=== PATIENT | female | born 2000 | race African-American/Black ===

== ENCOUNTER 2021-02-25 06:44 | Emergency (ER) | payer OTHER ==
--- OUTSIDE RECORDS SUMMARY | 2021-02-25 06:48 | XMS REPORT | Continuity of Care Document ---
:2000 Author Organization [facility] t Address [address] [place] [address] Care Team Providers Name Role Phone Nurse, [facility] Attending Clinician Unavailable Doctor Unassigned, Name Attending Clinician Unavailable Ashvin Antunez MD Attending Clinician Problems This patient has no known problems. Allergies, Adverse Reactions, Alerts This patient has no known allergies or adverse reactions. Medications This patient has no known medications. Procedures This patient has no known procedures. Encounters Start End Encounter Admission Attending Care Care Encounter Source Date/Time Date/Time Type Type Clinicians Facility Department ID 2020-11-10 2020-11-10 Nurse Nurse, [facility] [id number] 14:04:09 14:21:15 Visit Ellys Laura [id number] [place] [id number] [place] [phone] [address] 2020-11-10 2020-11-10 Orders Doctor HANNA [id number] 00:00:00 00:00:00 Only UnassignedNITA [id number] [place] [id number] [id number] 2020-10-13 2020-10-13 [place] KSALENA [id number] 00:00:00 00:00:00 Management Charu Sanchez [id number] [place] [id number] [address] 2020-10-07 2020-10-07 Office Adum, [facility] [id number] 14:57:02 16:05:41 Visit Charu Sanchez [id number] [place] [id number] [place] [phone] [facility] [address] [facility] Results This patient has no known results.
--- NOTE | 2021-02-25 07:57 | EDPHYS ---
Physician Documentation [facility] Name: Payton Crawford Age: 20 yrs Sex: Female : 2000 Arrival Date: 02/25/2021 Time: 06:48 Bed Waiting Private MD: ED Physician Andrew Chen HPI: 02/25 07:55 This 20 yrs old Black Female presents to ER via Ambulatory with complaints of Vomiting jmm - Over 24hrs. 07:55 The patient presents to the emergency department with nausea, vomiting. Onset: The jmm symptoms/episode began/occurred acutely, 1 day(s) ago. Possible causes: unknown. Is a 20-year-old female with no chronic medical conditions presents emerged part with complaints of nausea and vomiting beginning yesterday after eating breakfast. Patient denies diarrhea. Patient states she recently returned from [place] but had tested negative for coronavirus. Patient states she did have intermittent episodes of abdominal pain but now is pain-free. Patient does not have concerns for she did have a recent LMP.. Historical: - Allergies: 07:55 No Known Allergies; da3 - PMHx: 07:55 None; da3 - Immunization history:: Client reports having NOT received the Covid vaccine. ROS: 07:55 Constitutional: Negative for fever, chills, and weight loss, Cardiovascular: Negative jmm for chest pain, palpitations, and edema, Respiratory: Negative for shortness of breath, cough, wheezing, and pleuritic chest pain. 07:55 Abdomen/GI: Positive for vomiting. 07:55 All other systems are negative. Exam: 07:55 Constitutional: This is a well developed, well nourished patient who is awake, alert, jmm and in no acute distress. Head/Face: atraumatic. Eyes: EOMI, no conjunctival erythema appreciated ENT: Moist Mucus Membranes Neck: Trachea midline, Supple Chest/axilla: Normal chest wall appearance and motion. Cardiovascular: Regular rate and rhythm. No edema appreciated Respiratory: Normal respirations, no respiratory distress appreciated Abdomen/GI: Non distended, soft 07:55 Skin: General appearance color normal MS/ Extremity: Moves all extremities, no obvious deformities appreciated, no edema noted to the lower extremities Neuro: Awake and alert, normal gait Psych: Behavior is normal, Mood is normal, Patient is cooperative and pleasant 07:55 Abdomen/GI: Inspection: abdomen appears normal, Bowel sounds: normal, Palpation: abdomen is soft and non-tender, in all quadrants. Vital Signs: 07:54 BP 127 / 78; Pulse 67; Resp 18; Temp 98.1; Pulse Ox 100% on R/A; da3 MDM: 07:56 Data reviewed: vital signs, nurses notes. Counseling: I had a detailed discussion with [facility] the patient and/or guardian regarding: the historical points, exam findings, and any diagnostic results supporting the discharge/admit diagnosis, the need for outpatient follow up, to return to the emergency department if symptoms worsen or persist or if there are any questions or concerns that arise at home. ED course: Physical exam is not concerning for an acute intra-abdominal process. Patient was given early appendicitis return precautions. Patient understood and agrees to plan of care.. 07:57 Patient medically screened. [facility] Administered Medications: No medications were administered Disposition: 14:35 Co-signature as Attending Physician, Andrew Chen MD I agree with the assessment and rn plan of care. Attestation: The patient's history, exam findings, diagnostics, and a summary of any interventions or procedures was reviewed in detail with Gume CARREON. Disposition Summary: 02/25/21 07:57 Discharge Ordered Location: Home [facility] Condition: Stable [facility] Diagnosis - Vomiting [facility] Followup: [facility] - With: Private Physician - When: 2 - 3 days - Reason: Recheck today's complaints, Continuance of care, Re-evaluation by your physician Discharge Instructions: - Discharge Summary Sheet [facility] - Vomiting, Adult [facility] Forms: - Medication Reconciliation Form [facility] - Thank You Letter [facility] - Antibiotic Education [facility] - Prescription Opioid Use [facility] Prescriptions: - ondansetron 4 mg Oral tablet,disintegrating - take 1 tablet by ORAL route every 4-6 hours; 20 tablet; Refills: 0, Product [facility] Selection Permitted Signatures: Gume Lewis PA PA jmm Nieto, Roman, MD MD rn Allan, David, RN RN da3
--- NOTE | 2021-02-25 07:57 | ER ---
Nurse's Notes [facility] Name: Payton Crawford Age: 20 yrs Sex: Female : 2000 Arrival Date: 02/25/2021 Time: 06:48 Bed Waiting Private MD: Diagnosis: Vomiting Presentation: 02/25 07:52 Chief complaint: Patient states: Vomit abd discomfort. Coronavirus screen: Client da3 denies travel out of the [place] in the last 14 days. At this time, the client does not indicate any symptoms associated with coronavirus-19. Ebola Screen: No symptoms or risks identified at this time. Initial Sepsis Screen: Does the patient meet any 2 criteria? No. Patient's initial sepsis screen is negative. Risk Assessment: Do you want to hurt yourself or someone else? Patient reports no desire to harm self or others. 07:52 Method Of Arrival: Ambulatory da3 07:52 Acuity: AUBREE 4 da3 Triage Assessment: 07:55 General: Appears in no apparent distress. comfortable. da3 Historical: - Allergies: 07:55 No Known Allergies; da3 - PMHx: 07:55 None; da3 - Immunization history:: Client reports having NOT received the Covid vaccine. Vital Signs: 07:54 BP 127 / 78; Pulse 67; Resp 18; Temp 98.1; Pulse Ox 100% on R/A; da3 ED Course: 06:48 Patient arrived in ED. 06:49 [facility] Lewis [facility] is [facility] [place] 06:49 Andrew Chen MD is Attending Physician. [facility] 07:54 Triage completed. da3 07:55 Gume Lewis PA is PHCP. [facility] 07:55 Andrew Chen MD is Attending Physician. lucio Administered Medications: No medications were administered Outcome: 07:57 Discharge ordered by . pavel 08:09 Patient left the ED. da3 Signatures: Gume Lewis PA PA jmm Marsh, Wendy Stefano Sanches, RN RN da3
[2021-02-25 08:15] VITALS: BP 127/78; TEMP 98.1; O2SAT 100
== END 2021-02-25 08:09 | disposition home or self-care (01) ==
LOC: ER 06:44
DX: R11.10 Vomiting, unspecified (principal)
CPT/HCPCS: 99281